=== PATIENT | female | born 1960 | race African-American/Black ===

== ENCOUNTER 2018-05-06 07:57 | Day surgery (SDC) | payer OTHER ==
[~2018-05-06] VITALS: Ht 157.5 cm; Wt 186.9 kg
[2018-05-06] MEDS ORDERED: GLIP5TER PO (08:25)
[2018-05-06] MEDS ORDERED: METF500T2 PO (08:25)
[2018-05-06] MEDS ORDERED: CALC-53 PO (08:25)
[2018-05-06] MEDS ORDERED: ORE25 PO (08:25)
[2018-05-06] MEDS ORDERED: LISI10TA11 PO (08:25)
[2018-05-06] MEDS ORDERED: ASPI81CT89 PO (08:25)
[2018-05-06] MEDS ORDERED: LIDOCAINE 2% 100 MG/5 ML UJET TP ONE (08:57)
[2018-05-06] MEDS ORDERED: KETOROLAC 30 MG/ML VIAL ONE (08:57)
== END 2018-05-06 09:55 | disposition home or self-care (01) ==
LOC: MDS 07:57 → MMU 08:00 → MDS 09:55
PROVIDERS: ATTEND Internal Medicine Gastroenterology
DX: D12.3 Benign neoplasm of transverse colon (principal); E11.9 Type 2 diabetes mellitus without complications; I10 Essential (primary) hypertension; E66.01 Morbid (severe) obesity due to excess calories; Z68.45 Body mass index [BMI] 70 or greater, adult; Z87.891 Personal history of nicotine dependence; Z79.899 Other long term (current) drug therapy; Z79.82 Long term (current) use of aspirin; Z79.84 Long term (current) use of oral hypoglycemic drugs; Z98.42 Cataract extraction status, left eye; Z98.41 Cataract extraction status, right eye; Z98.890 Other specified postprocedural states; Z80.0 Family history of malignant neoplasm of digestive organs
CPT/HCPCS: 82948; J1885